=== PATIENT | male | born 1980 | race Caucasian/White ===

== ENCOUNTER 2020-07-02 02:24 | Inpatient (IN) | payer OTHER ==
[~2020-07-02] VITALS: Ht 182.9 cm; Wt 142.0 kg
--- NOTE | 2020-07-02 02:55 | NUR ---
MD Frances in room to do MSE.
[2020-07-02] MEDS ORDERED: OXYCODONE HCL 5 MG TABLET PO ONE (03:00)
[2020-07-02 03:19] LABS: BASOPHILS % (AUTO) 0.2 % (0.0-2.0); EOSINOPHILS # (AUTO) 0.5 K/uL (0.0-0.7); HEMATOCRIT 29.6 % (36.7-47.1); HEMOGLOBIN 9.8 g/dL (12.5-16.3); LYMPHOCYTES % (AUTO) 10.2 % (20.5-51.5); MEAN CORPUSCULAR HEMOGLOBIN 27.6 uug (23.8-33.4); MEAN CORPUSCULAR HGB CONC 33 g/dL (32.5-36.3); MEAN CORPUSCULAR VOLUME 83.1 fL (73.0-96.2); MONOCYTES % (AUTO) 9.6 % (0.0-11.0); NEUTROPHILS # (AUTO) 7.5 K/uL (1.8-8.9); PLATELET COUNT (AUTO) 198 K/uL (152-348); RED BLOOD CELL COUNT(AUTO) 3.56 MIL/uL (4.06-5.63)
--- NOTE | 2020-07-02 03:30 | NUR ---
technology resource teacher in room to do x-ray on patient.
[2020-07-02 03:39] LABS: BILIRUBIN,DIRECT 0.2 mg/dL (0.0-0.2); BILIRUBIN,TOTAL 0.6 mg/dL (0.2-1.0); POTASSIUM 5.9 mmol/L (3.5-5.1)
[2020-07-02 03:44] LABS: CREATININE 12.3 mg/dL (0.6-1.3)
[2020-07-02] MEDS ORDERED: OXYCODONE HCL 5 MG TABLET ONE (03:44)
--- NOTE | 2020-07-02 03:44 | NUR ---
Jeny/Ray called with critical vallues for BUN [address] Dr[address] Frances made aware.
--- NOTE | 2020-07-02 03:50 | NUR ---
Patient is sleeping on bed, eyes closed. Appears to not be in distress at this time.
[2020-07-02] MEDS ORDERED: CALC667T6 PO (04:50)
[2020-07-02] MEDS ORDERED: HYDR100T27 PO (04:50)
[2020-07-02] MEDS ORDERED: FURO40TA5 PO (04:50)
[2020-07-02] MEDS ORDERED: FOLI1TAB34 PO (04:50)
[2020-07-02] MEDS ORDERED: ISOS60TA72 PO (04:50)
[2020-07-02] MEDS ORDERED: OXYC15TA2 PO (04:50)
[2020-07-02] MEDS ORDERED: nifedipine PO (04:50)
[2020-07-02] MEDS ORDERED: carvedilol PO (04:50)
--- NOTE | 2020-07-02 04:50 | NUR ---
Patient is resting on bed in room, eyes closed. In no acute distress at this time.
--- NOTE | 2020-07-02 05:12 | NUR ---
Paged Epic panel lamination inspector, waiting for Dr Quiroz to call back.
--- NOTE | 2020-07-02 05:18 | NUR ---
Called med-surg/telemetry 3rd floor. THERON Phillips states patient will be going to room 304.
--- NOTE | 2020-07-02 05:20 | NUR ---
Dr Frances spoke with Dr Quiroz Epic panel senior validation engineer.
[2020-07-02] MEDS ORDERED: ONDANSETRON 4 MG/2 ML VIAL IV PRN (05:30)
[2020-07-02] MEDS ORDERED: MAGNESIUM HYDROXIDE 30 ML LIQUID UDC PO PRN (05:30)
[2020-07-02] MEDS ORDERED: ACETAMINOPHEN 325 MG TABLET PO PRN (05:30)
[2020-07-02] MEDS ORDERED: Z GUARD REMEDY PASTE 57 GM TUBE TOP PRN (05:30)
[2020-07-02] MEDS ORDERED: HYDROCODONE/APAP 5-325MG TABLET PO PRN (05:30)
--- NOTE | 2020-07-02 05:56 | NUR ---
environmental health technologist Ray called stating patient is COVID negative.
--- NOTE | 2020-07-02 05:57 | NUR ---
Called telemetry floor to give report on patient, THERON Menendez states no nurse assigned to patient yet, pending call back.
--- NOTE | 2020-07-02 06:17 | NUR ---
Day shift nursing staff on telemetry floor will be taking over patient once they arrive per THERON Egan. Ok'ed per nursing brush fabrication supervisor Meme.
--- NOTE | 2020-07-02 06:40 | NUR ---
Report given to THERON Egan, patient will be assigned room 304.
--- NOTE | 2020-07-02 07:00 | NUR ---
Pt. admitted to telemetry unit room 304, under care of Dr. Quiroz. Belongs List completed, paperwork transported with patient, transported upstairs via gurney.
--- NOTE | 2020-07-02 07:30 | NUR ---
Received patient in bed awake alert and oriented times 4. No sign of distress noted. Patient is on room air and saturating well. Patient wounds documented through photographs patient in patient's chart. Initial vital signs taken. Will continue with patient admission. Safety precautions are in place. Will continue to monitor.
[2020-07-02] MEDS ORDERED: OXYCODONE HCL 5 MG TABLET PO PRN (07:45)
[2020-07-02] MEDS ORDERED: CALCIUM ACETATE 667 MG CAPSULE PO ONE (08:00)
[2020-07-02 08:25] LABS: MAGNESIUM 3.2 mg/dL (1.8-2.4)
[2020-07-02] MEDS: FUROSEMIDE 40 MG TABLET PO SCH ×2 (08:42→12:12)
[2020-07-02] MEDS ORDERED: ISOSORBIDE MONONITRATE 60 MG TAB.SR.24H PO SCH (09:00)
[2020-07-02] MEDS ORDERED: FOLIC ACID PO SCH (09:00)
[2020-07-02] MEDS ORDERED: VITAMIN B COMP W C PO SCH (09:00)
[2020-07-02] MEDS ORDERED: FOLIC ACID/VITAMIN B COMP W-C TABLET PO SCH (09:00)
[2020-07-02] MEDS ORDERED: [UNRECOGNIZED DRUG - OTHER] PO SCH (09:00)
[2020-07-02] MEDS ORDERED: hydrALAZINE HCL 50 MG TABLET PO SCH (09:00)
[2020-07-02 11:51] VITALS: BP 129/64
[2020-07-02] MEDS ORDERED: CALCIUM ACETATE 667 MG CAPSULE PO SCH (12:00)
--- NOTE | 2020-07-02 12:36 | NUR ---
WOUND CARE CONSULT: PT PRESENTS WITH LEFT FOOT WOUNDS WHICH ARE DRY, PRESENT ON ADMISSION. RECOMMEND DPM CONSULT. DR GRIMES NOTIFIED OF CONSULT REQUEST. PT IS AMBULATORY AND CONTINENT. MD IN AGREEMENT WITH PLAN OF CARE.
--- NOTE | 2020-07-02 15:00 | NUR ---
Podiatry MD in with patient.
--- NOTE | 2020-07-02 15:10 | NUR ---
Patient is refusing to have wound on left foot debrided per MD. Will continue to monitor.
[2020-07-02 15:59] VITALS: BP 118/47
--- NOTE | 2020-07-02 17:30 | NUR ---
Patient decided to do AMA. he says that he was not happy with the service from the dialysis nurse and want to leave. He refused to sign the AMA form. IV and ID band removed. Patient brought down to car in a wheelchair. Charge nurse and director of human resources made aware. All medications given as ordered. No sign of distress was noted at time of departure.
== END 2020-07-02 17:35 | disposition left against medical advice (07) | DRG 194 ==
LOC: ER 02:50 → TELE3 06:52
PROVIDERS: ADMIT Internal Medicine; ATTEND Internal Medicine
PROC: 5A1D70Z Performance of Urinary Filtration, Intermittent, Less than 6 Hours Per Day (ICD-10-PCS; principal; 2020-07-02)
DX: I13.2 Hypertensive heart and chronic kidney disease with heart failure and with stage 5 chronic kidney disease, or end stage renal disease (principal); E11.40 Type 2 diabetes mellitus with diabetic neuropathy, unspecified; E11.22 Type 2 diabetes mellitus with diabetic chronic kidney disease; D63.8 Anemia in other chronic diseases classified elsewhere; N18.6 End stage renal disease; Z99.2 Dependence on renal dialysis; N25.0 Renal osteodystrophy; E11.621 Type 2 diabetes mellitus with foot ulcer; L97.429 Non-pressure chronic ulcer of left heel and midfoot with unspecified severity; E66.9 Obesity, unspecified; E83.39 Other disorders of phosphorus metabolism; E87.5 Hyperkalemia; Z68.41 Body mass index [BMI] 40.0-44.9, adult; Z90.49 Acquired absence of other specified parts of digestive tract; Z20.822 Contact with and (suspected) exposure to COVID-19; I50.31 Acute diastolic (congestive) heart failure
CPT/HCPCS: 36415; 70030-TC; 71045; 83605; 83735; 84100; 85025; 85730; 86706; 87340; 90937; 93005; A4663; G0378